=== PATIENT | female | born 1985 | race Caucasian/White ===

== ENCOUNTER → 2020-01-23 07:51 | Outpatient (CLI) | payer BC, SELFPAY ==
--- NOTE | ~2020-01-23 | US_ITS ---
EXAMINATION: US breast RT limited HISTORY: Palpable lump in the upper outer quadrant of the right breast TECHNIQUE: Limited right breast ultrasound is performed. FINDINGS: There is no evidence of focal abnormal cystic or solid mass in the vicinity of the reported palpable abnormality of concern. IMPRESSION: No specific sonographic correlate is identified for the reported palpable abnormality of concern. Fur ther evaluation at this time should be based on clinical assessment. Continued follow-up physical exa mination is recommended. BI-RADS Category 1: Negative Reviewed, dictated and finalized at location A. IMPRESSION: No specific sonographic correlate is identified for the reported palpable abnor mality of concern. Further evaluation at this time should be based on clinical assessment. Continued follow-up physical examination is recommended. BI-RADS Category 1: Negative
== END ==
PROVIDERS: PCP Emergency Medicine; Visit Provider Advanced Practice Midwife
DX: N63.10 Unspecified lump in the right breast, unspecified quadrant (principal)
CPT/HCPCS: 76642

== ENCOUNTER 2021-06-23 16:31 | Outpatient (CLI) | payer OTHER, SELFPAY ==
[2021-06-23 17:01] VITALS: BP 122/70; PULSE 90
[2021-06-23 17:16] VITALS: BP 122/71; PULSE 88
[2021-06-23 17:31] VITALS: BP 118/68; PULSE 87
[2021-06-23 17:45] VITALS: BP 122/70; PULSE 90
== END 2021-06-23 17:45 | disposition home or self-care (01) ==
LOC: ANHOBOP 16:36 → ANHOBPP 16:36
PROVIDERS: PCP Family Medicine; Visit Provider Obstetrics & Gynecology
DX: O42.912 Preterm premature rupture of membranes, unspecified as to length of time between rupture and onset of labor, second trimester (principal); Z3A.00 Weeks of gestation of pregnancy not specified
CPT/HCPCS: 59025; 84112; 99199

== ENCOUNTER 2021-07-23 10:51 | Emergency (ER) | payer OTHER, SELFPAY ==
[2021-07-23 11:08] VITALS: BP 112/73; PULSE 82; RESP 16; TEMP 36.7; O2SAT 100
--- NOTE | 2021-07-23 11:20 | ED.SKABFB ---
HPI - Skin/Abscess/Foreign Bdy General Chief complaint: Skin/Abscess/Foreign Body Stated complaint: Rt Leg Irritation Time Seen by Provider: 07/23/21 11:21 Source: patient Mode of arrival: ambulatory Limitations: no limitations History of Present Illness HPI narrative: 35 yo F presents with c/o redness, warmth, burning sensation to anterior aspect R lower leg. Started 4 to 5 days ago as a small dot and now spreading. Pt denies pain and swelling. No injury. Is 33 wks . 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 No smoking hx. Does get up and walk around. NO SOB. No hx of DVT. All systems reviewed and negative except as noted above. Related Data Home Medications Medication Instructions Recorded Confirmed norethindrone acetate 1 mg-ethinyl 1 tablet PO DAILY 05/11/20 02/10/21 estradiol 20 mcg tablet valacyclovir 1 gram tablet 1,000 mg PO .COMPLEX 05/11/20 02/10/21 cyclobenzaprine 10 mg tablet 10 mg PO TID PRN 09/23/20 02/10/21 ubrogepant 100 mg tablet 100 mg PO ONCE PRN 09/23/20 02/10/21 Allergies Allergy/AdvReac Type Severity Reaction Status Date / Time NICKELSULFATE AdvReac Intermediate TOPICAL Uncoded 07/23/21 11:09 REACTION TO WORN METAL Review of Systems Review of Systems: CONSTITUTIONAL: Denies fever, chills, or sweats. EYES: Denies visual changes, redness, or discharge. ENT: Denies rhinorrhea, congestion, sore throat, or otalgia. CARDIOVASCULAR: Denies chest pain, palpitations, or edema. RESPIRATORY: Denies cough or dyspnea. GASTROINTESTINAL: Denies abdominal pain, nausea, vomiting, or diarrhea. GENITOURINARY: Denies dysuria or hematuria. SKIN: Reports redness warmth and burning sensation to right lower leg MUSCULOSKELETAL: Denies back pain, joint pain, or myalgia. NEUROLOGIC: Denies headache, numbness, or weakness. PSYCHIATRIC: Denies anxiety or depression. All other systems reviewed are negative, except as documented in HPI. [facility] Past Medical History Medical History (Updated 07/23/21 @ 11:29 by Siri Rose NP) Acute sinusitis, unspecified Chronic anxiety Chronic neck pain Contraception management Encounter for wellness examination in adult Fever blister Hx of migraine headaches Migraine without aura and without status migrainosus, not intractable Palpitation Raynaud's disease without gangrene Surgical History Surgical History (Updated 05/11/20 @ 14:40 by Grace Junior MA) History of breast surgery (~2007) benign tumor removed Hx of LASIK (~2007) Family History Family History (Updated 05/11/20 @ 14:42 by Grace Junior MA) Mother Lupus Heart disease Father Heart disease Melanoma Grandparent Glaucoma Grandparent Heart disease Grandparent Macular degeneration Grandparent Mesothelioma Depression Sibling Depression Social History Social History Smoking status: Never smoker Alcohol intake: current Drinks per week: 2 Substance use: current Other substance usage details: Marijuana edibles on occasion Comments At time of signature, agree with nursing past medical, surgical, social and family history. There is no relevant family history pertinent to the presenting complaint. Exam Narrative: GENERAL: This is a well-nourished, well-developed patient, in no apparent distress. HEAD: normocephalic, atraumatic. EYES: PERRL. Sclera clear/white. Vision is grossly intact. EARS: External ears normal, auditory canals clear and without drainage, TMs normal without perforation. Hearing grossly intact. NOSE: External nose normal with no obvious nasal discharge, nares without redness, no rhinorrhea. THROAT: Mucous membranes moist, posterior pharynx clear. NECK: Neck supple, non-tender without lymphadenopathy, masses or thyromegaly. CARDIOVASCULAR: Regular rate and rhythm without murmurs, gall
[2021-07-23 12:05] VITALS: BP 112/73; PULSE 82; RESP 16; TEMP 36.7; O2SAT 100
== END 2021-07-23 11:32 | disposition home or self-care (01) ==
PROVIDERS: Emergency Provider Nurse Practitioner Family; PCP Family Medicine
DX: O99.713 Diseases of the skin and subcutaneous tissue complicating pregnancy, third trimester (principal); Z3A.33 33 weeks gestation of pregnancy; L03.115 Cellulitis of right lower limb; O99.413 Diseases of the circulatory system complicating pregnancy, third trimester; I73.00 Raynaud's syndrome without gangrene
CPT/HCPCS: 99213; G0463

== ENCOUNTER 2021-07-25 11:40 | Emergency (ER) | payer OTHER, SELFPAY ==
[2021-07-25] VITALS (10 sets, daily range): BP systolic 120–146; BP diastolic 71–91; PULSE 84–102; RESP 16–20; TEMP 36.6; O2SAT 96–100
--- NOTE | ~2021-07-25 | US_ITS ---
EXAMINATION: US venous doppler LE EXAM DATE: 07/25/2021 14:21 INDICATION: Right ankle erythema. Purple color to toes. TECHNIQUE: Multiple grayscale, color flow and Doppler images of the lower extremity deep venous syste ms bilaterally were obtained and reviewed. There is no prior study for comparison. FINDINGS: Right side: The right common femoral, femoral and profunda veins demonstrate normal color flow, respi ratory variation, augmentation and compressibility. Compressibility, color flow confirmed within the right popliteal, posterior tibial, peroneal, and greater saphenous veins. Left side: The left common femoral, femoral and profunda veins demonstrate normal color flow, respira tory variation, augmentation and compressibility. Compressibility, color flow confirmed within the l eft popliteal, posterior tibial, peroneal, and greater saphenous veins. IMPRESSION: 1. No lower extremity deep venous thrombosis bilaterally. Reviewed, dictated and finalized at location B. NET WORKER
--- NOTE | 2021-07-25 13:25 | ED.LOWEXIN ---
HPI - Extremity Injury (Lower) General Chief Complaint: Extremity Injury, Lower Stated Complaint: discoloration to right leg Time Seen by Provider: 07/25/21 13:00 History of Present Illness HPI Narrative: 35-year-old female presents to the emergency room with discoloration to her right leg x1 week. Patient denies any pain. Patient states that she was seen at an urgent care for this same complaint days ago and was started on course of Keflex and topical steroid. Patient states no improvement in symptoms. Patient is 31 weeks . 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 Patient admits to sitting on her right leg. Also admits to being tested for autoimmune disorders has a positive LEIDY, with an unidentified autoimmune disord Family history of lupus. Related Data Home Medications Medication Instructions Recorded Confirmed PNV no.[id number] acid 1 tablet PO DAILY 07/23/21 07/23/21 [Complete ] aspirin [Adult Low Dose Aspirin] 81 mg PO DAILY 07/23/21 07/23/21 Allergies Allergy/AdvReac Type Severity Reaction Status Date / Time NICKELSULFATE AdvReac Intermediate TOPICAL Uncoded 07/23/21 11:09 REACTION TO WORN METAL Review of Systems Review of Systems: CONSTITUTIONAL: Denies fever, chills, or sweats. EYES: Denies visual changes, redness, or discharge. ENT: Denies rhinorrhea, congestion, sore throat, or otalgia. CARDIOVASCULAR: Denies chest pain, palpitations, or edema. RESPIRATORY: Denies cough or dyspnea. GASTROINTESTINAL: Denies abdominal pain, nausea, vomiting, or diarrhea. GENITOURINARY: Denies dysuria or hematuria. SKIN: Discoloration to the right ankle. MUSCULOSKELETAL: Denies back pain, joint pain, or myalgia. NEUROLOGIC: Denies headache, numbness, dizziness, or weakness. PSYCHIATRIC: Denies anxiety or depression. [facility] Past Medical History Medical History Acute sinusitis, unspecified Chronic anxiety Chronic neck pain Contraception management Encounter for wellness examination in adult Fever blister Hx of migraine headaches Migraine without aura and without status migrainosus, not intractable Palpitation Raynaud's disease without gangrene Surgical History Surgical History History of breast surgery (~2007) benign tumor removed Hx of LASIK (~2007) Family History Family History Mother Lupus Heart disease Father Heart disease Melanoma Grandparent Glaucoma Grandparent Heart disease Grandparent Macular degeneration Grandparent Mesothelioma Depression Sibling Depression Social History Social History Smoking status: Never smoker Alcohol intake: current Drinks per week: 2 Substance use: current Other substance usage details: Marijuana edibles on occasion Exam Narrative: GENERAL: Well-appearing, well-nourished, and in no acute distress. HEAD: Normocephalic, atraumatic. EYES: PERRLA and EOMI. ENT: Nares clear, no rhinorrhea or epistaxis. Mucous membranes moist. Oropharynx without tonsillar hypertrophy exudate or other lesions. Bilateral TMs pearly thornton nonbulging NECK: Supple. No adenopathy or masses. No carotid bruits or JVD CHEST: Clear to auscultation. No respiratory distress. No wheezes rales or rhonchi HEART: Regular rate and rhythm. No murmur heard. Normal peripheral pulses. ABDOMEN: Soft, nontender, nondistended, normal active bowel sounds. EXTREMITIES: Normal range of motion. No edema. Negative Homans SKIN: Warm, dry, no rash. Slight hyperpigmentation to the right ankle and distal tibia. NEURO: No focal deficits. Alert and oriented x3. PSYCH: Normal mood and affect. Course Vital Signs Vital signs: Vital Signs Temp
[2021-07-25 14:06] LABS: Add Urine Microscopic? YES; Appearance Urine Clear (Clear); Bacteria Urine Trace /hpf; Bilirubin Urine Negative (Negative); Blood Urine Negative (Negative); Color Urine Yellow (Yellow); Glucose Urine UA Negative (Negative); Ketones Urine Negative (Negative); Leukocyte Esterase Ur 3+ LEU/UL (Negative); Mucus Urine Rare /lpf; Nitrate Urine Negative (Negative); Protein Urine Negative (Negative); Specific Grav Ur 1.018 (1.001-1.035); Squamous Epithelial Cell Urine Many /hpf (Few); Urobilinogen Urine Negative mg/dL (<2.0); WBC Urine 21-30 /hpf
[2021-07-25 14:26] LABS: Basophils Absolute Auto 0.1 K/mm3 (0.0-0.1); Basophils Percent Auto 0.5 % (0.2-1.2); Eosinophils Absolute Auto 0.1 K/mm3 (0-0.3); Eosinophils Percent Auto 1.3 % (0-4.4); Hematocrit 33.6 % (37.0-47.0); Hemoglobin 11.5 g/dL (12.0-15.0); Immature Granulocyte Absolute 0.06 K/mm3 (0.00-0.031); Immature Granulocyte Percent A 0.7 % (0-0.5); Lymphocytes Absolute Auto 1.33 K/mm3 (0.9-3.2); Lymphocytes Percent Auto 14.4 % (18.3-44.2); Mean Corpuscular HGB Conc 34.2 g/dl (32-36); Mean Corpuscular Hemoglobin 30.8 pg (26-34); Mean Corpuscular Volume 90.1 fl (80-100); Mean Platelet Volume 9.9 fl (7.4-10.4); Monocytes Absolute Auto 0.6 K/mm3 (0.1-0.6); Monocytes Percent Auto 6.2 % (2.6-8.5); Neutrophils Absolute Auto 7.1 K/mm3 (1.3-6.7); Neutrophils Percent Auto 76.9 % (45.5-73.1); Platelet Count Result 219 k/mm3 (150-375); Red Blood Count 3.73 M/mm3 (4.2-5.4); Red Cell Distribution Width 12.9 % (11.5-14.5); White Blood Count 9.2 K/mm3 (4.5-10.0)
[2021-07-25 14:38] LABS: Alanine Aminotransferase 16 U/L (4-35); Albumin Level 3.8 g/dL (3.5-5.1); Alkaline Phosphatase 72 U/L (38-126); Anion Gap 6 mmol/L (8-16); Aspartate Amino Transferase 23 U/L (14-36); Bilirubin,Total 0.3 mg/dL (0.2-1.3); Blood Urea Nitrogen 10 mg/dL (7-17); Calcium 8.2 mg/dL (8.4-10.2); Carbon Dioxide 22 mmol/L (22-30); Chloride 105 mmol/L (98-107); Estimated CRCL calculation 153 ml/min; Estimated Glomerular Filt Rate > 60; Glucose 81 mg/dL (65-110); Potassium 4.1 mmol/L (3.4-5.0); Sodium 133 mmol/L (137-145)
--- NOTE | 2021-07-25 14:45 | PC.NURSE ---
pt refused iv insertion at this time. pt educate on risks and benefits and verbalized understanding.
[2021-07-25 14:50] LABS: Prothrombin Time 12.5 Seconds (11.1-14.7)
[2021-07-25 14:51] LABS: Partial Thromboplastin Time 28.2 SECONDS (22.3-36.8)
== END 2021-07-25 15:31 | disposition home or self-care (01) ==
PROVIDERS: Emergency Provider Nurse Practitioner Family; PCP Family Medicine
DX: O99.713 Diseases of the skin and subcutaneous tissue complicating pregnancy, third trimester (principal); L81.9 Disorder of pigmentation, unspecified; O13.3 Gestational [pregnancy-induced] hypertension without significant proteinuria, third trimester; Z3A.31 31 weeks gestation of pregnancy; O99.413 Diseases of the circulatory system complicating pregnancy, third trimester; I73.00 Raynaud's syndrome without gangrene; R76.0 Raised antibody titer; Z79.82 Long term (current) use of aspirin
CPT/HCPCS: 36415; 80053; 81001; 85025; 85380; 85610; 85730; 87086; 87088; 93970; 99284

== ENCOUNTER 2021-09-02 10:00 | Outpatient (CLI) | payer OTHER, SELFPAY ==
[2021-09-02 10:10] VITALS: BP 135/80; PULSE 98
[2021-09-02 10:15] VITALS: BP 105/89; PULSE 94
[2021-09-02 10:20] VITALS: BP 135/80; PULSE 98
[2021-09-02 10:45] VITALS: BP 126/83; PULSE 86
[2021-09-02 10:45] LABS: Basophils Percent Auto 0.4 % (0.2-1.2); Eosinophils Absolute Auto 0.1 K/mm3 (0-0.3); Eosinophils Percent Auto 1.1 % (0-4.4); Hematocrit 35.8 % (37.0-47.0); Immature Granulocyte Absolute 0.07 K/mm3 (0.00-0.031); Immature Granulocyte Percent A 0.7 % (0-0.5); Lymphocytes Absolute Auto 1.41 K/mm3 (0.9-3.2); Lymphocytes Percent Auto 13.2 % (18.3-44.2); Mean Corpuscular HGB Conc 33.5 g/dl (32-36); Mean Corpuscular Hemoglobin 30.3 pg (26-34); Mean Corpuscular Volume 90.4 fl (80-100); Mean Platelet Volume 10.2 fl (7.4-10.4); Monocytes Absolute Auto 0.6 K/mm3 (0.1-0.6); Neutrophils Absolute Auto 8.4 K/mm3 (1.3-6.7); Neutrophils Percent Auto 78.6 % (45.5-73.1); Platelet Count Result 249 k/mm3 (150-375); Red Blood Count 3.96 M/mm3 (4.2-5.4); Red Cell Distribution Width 13.4 % (11.5-14.5); White Blood Count 10.7 K/mm3 (4.5-10.0)
[2021-09-02 10:50] LABS: Add Urine Microscopic? YES; Appearance Urine Clear (Clear); Bacteria Urine Trace /hpf; Bilirubin Urine Negative (Negative); Blood Urine Negative (Negative); Color Urine Yellow (Yellow); Glucose Urine UA Negative (Negative); Ketones Urine Negative (Negative); Leukocyte Esterase Ur 3+ LEU/UL (NEGATIVE); Nitrate Urine Negative (Negative); Protein Urine Negative (Negative); RBC Urine 0-2 /hpf (0-2); Specific Grav Ur 1.008 (1.001-1.035); Squamous Epithelial Cell Urine Few /hpf (Few); Urobilinogen Urine Negative mg/dL (<2.0); WBC Urine 0-3 /hpf (0-3)
[2021-09-02 10:52] LABS: Creatinine Urine 38.4 mg/dL; Total Protein Urine Random 9 mg/dL; Ur Ttl Prot Creatinine Ratio 0.23 mg/mg (0-0.20)
[2021-09-02 11:00] VITALS: BP 115/73; PULSE 87
[2021-09-02 11:05] LABS: Alanine Aminotransferase 29 U/L (4-35); Albumin Level 3.7 g/dL (3.5-5.1); Alkaline Phosphatase 133 U/L (38-126); Anion Gap 4 mmol/L (8-16); Aspartate Amino Transferase 29 U/L (14-36); Bilirubin,Total 0.3 mg/dL (0.2-1.3); Blood Urea Nitrogen 8 mg/dL (7-17); Calcium 8.5 mg/dL (8.4-10.2); Carbon Dioxide 22 mmol/L (22-30); Chloride 105 mmol/L (98-107); Estimated Glomerular Filt Rate > 60; Glucose 80 mg/dL (65-110); Potassium 4.2 mmol/L (3.4-5.0); Sodium 131 mmol/L (137-145); Uric Acid 4.9 mg/dL (2.5-7.5)
[2021-09-02 11:08] VITALS: TEMP 36.2
== END 2021-09-02 11:15 ==
LOC: ANHOBOP 10:04 → ANHOBPP 10:07
PROVIDERS: Advanced Practice Midwife; PCP Family Medicine; Visit Provider Obstetrics & Gynecology
DX: O13.3 Gestational [pregnancy-induced] hypertension without significant proteinuria, third trimester (principal); Z3A.36 36 weeks gestation of pregnancy
CPT/HCPCS: 36415; 59025; 80053; 81001; 82570; 84156; 84550; 85025; 87086; 99199

== ENCOUNTER 2021-09-06 00:02 | Inpatient (IN) | payer OTHER, SELFPAY ==
[2021-09-06] VITALS (191 sets, daily range): BP systolic 101–133; BP diastolic 53–93; PULSE 67–120; RESP 16; TEMP 36.4–36.8; O2SAT 91–100; BMI 25.1
--- OUTSIDE RECORDS SUMMARY | 2021-09-06 00:07 | XMS_ITS | Encounter Summary ---
:1985 Author Care Team Providers Name Role Phone Merlin Ricks MD Primary Care Provider [phone] Reason for Visit OB visit [id number] ISAURO 09/25/2021 Assessment and Plan Assessment Note Patient is _36__weeks . Dis cussed plan. 1. Routine care Discussion Note: None recorded.Patient educational handouts: No information available. Plan of Care Reminders Provider Appointments Well on or around Sonja Suman Sun-florencio 01/13/2022 CNM Lab None ? ? recorded. Referral None ? ? recorded. Procedures None ? ? recorded. Surgeries None ? ? recorded. Imaging None ? ? recorded. Medications Name Start Date ? ? Colace ? Daily ? ondansetron 4 mg disintegrating tablet ? Place 1 tablet every 6-8 hours by translingual route. valacyclovir 500 mg tablet ? TAKE 1 TABLET BY MOUTH DAILY Medications Administered None recorded. Vitals Height Weight BMI Blood Pressure 5 ft 11 in 201 lbs 28 kg/m2 (1) 155/95 mm[H g] (2) 140/90 mm[Hg ] Results Lab Results None recorded. Allergies Code Code System Name Reaction Severity Onset
--- OUTSIDE RECORDS SUMMARY | 2021-09-06 00:07 | XMS_ITS | Encounter Summary ---
:1985 Author Care Team Providers Name Role Phone Merlin Ricks MD Primary Care Provider [phone] Reason for Visit OB visit OB [id number] EDC 09/25/2021 LMP 12/19/2020 Assessment and Plan 1. Routine care Discussion Note: None recorded.Patient educational handouts: No information available. Plan of Care Reminders Provider Appointments Well on or around Sonja montoya, Woman-est 01/13/2022 CNM Lab None ? ? recorded. [...] BMI Blood Pressure 5 ft 11 in 198 lbs 27.6 kg/m2 129/82 mm[Hg] Results Lab Results None recorded. Allergies Code Code System Name Reaction Severity Onset [id number] RxNorm Nickel ? ? ? Problems Name Status Onset Date Source ?
--- OUTSIDE RECORDS SUMMARY | 2021-09-06 00:07 | XMS_ITS | Encounter Summary ---
:1985 Author Care Team Providers Name Role Phone Merlin Ricks MD Primary Care Provider [phone] Reason for Visit None recorded. Assessment and Plan 1. Transient hypertension of pre gnancy ? non-stress test Discussion Note: None recorded.Patient educational handouts: No information available. Plan of Care Reminders Provider Appointments Well on or around Sonja montoya CNM Woman[facility]est 01/13/2022 Lab None ? ? recorded. Referral None ? ? recorded. Procedures None ? ? recorded. Surgeries None ? ? recorded. Imaging 08/25/2021 [place] Non-stress Test Medications Name Start Date ? ? Colace ? Daily ? ondansetron 4 mg disintegrating tablet ? Place 1 tablet every 6-8 hours by translingual route. valacyclovir 500 mg tablet ? TAKE 1 TABLET BY MOUTH DAILY Medications Administered None recorded. Vitals Weight Blood Pressure 200 lbs 136/90 mm[Hg] Results Lab Results None recorded. Allergies Code Code System Name Reaction Severity Onset [id number] RxNorm Nickel ? ? ? Problems Name Status O
--- OUTSIDE RECORDS SUMMARY | 2021-09-06 00:07 | XMS_ITS | Encounter Summary ---
:1985 Author Care Team Providers Name Role Phone Merlin Ricks MD Primary Care Provider [phone] Reason for Visit None recorded. Assessment and Plan 1. Transient hypertension of pre gnancy ? non-stress test Discussion Note: None recorded.Patient educational handouts: No information available. Plan of Care Reminders Provider Appointments Well on or around Sonja montoya CNM Woman-est 01/13/2022 Lab None ? ? recorded. Referral None ? ? recorded. Procedures None ? ? recorded. Surgeries None ? ? recorded. Imaging 08/30/2021 [place] Non-stress Test Medications Name Start Date ? ? Colace ? Daily ? ondansetron 4 mg disintegrating tablet ? Place 1 tablet every 6-8 hours by translingual route. valacyclovir 500 mg tablet ? TAKE 1 TABLET BY MOUTH DAILY Medications Administered None recorded. Vitals None recorded. Results Lab Results None recorded. Allergies Code Code System Name Reaction Severity Onset [id number] RxNorm Nickel ? ? ? Problems Name Status Onset Date Source ?
--- OUTSIDE RECORDS SUMMARY | 2021-09-06 00:07 | XMS_ITS ---
:1985 Author Care Team Providers Name Role Phone TANIA MACIEL MD Primary Care Provider [phone] Allergies Code Code System Name Reaction Severity Status Onset [id number] RxNorm Nickel ? ? Active ? Medications Name Status Start Date Stop Date ? ? acetaminophen 300 mg-codeine 30 mg tablet Completed ? 06/09/2021 TAKE 1 TABLET BY MOUTH EVERY 8 HOURS NEEDED FOR PAIN amoxicillin 250 mg capsule Completed ? 06/13 take 1 capsule by oral route every 8 hours amoxicillin 875 mg tablet Completed ? 2021 TAKE 1 TABLET BY MOUTH TWICE DAILY Aurovela Fe 1-20 (28) 1 mg-20 mcg (21)/75 mg (7) tablet Complete d ? 01/03/2021 TAKE 1 TABLET BY MOUTH EVERY DAY azithromycin 250 mg tablet Completed ? 01/03 FOLLOW PACKAGE DIRECTIONS cefdinir 300 mg capsule Completed ? 05/19/20 21 TAKE 1 CAPSULE BY MOUTH EVERY 12 HOURS cephalexin 500 mg capsule Completed ? 2021 TAKE 1 CAPSULE BY MOUTH EVERY 8 HOURS FOR 7 DAYS Colace Active ? Not available Colace 50 mg capsule Completed 06/13/2016 08/31/2017 take 1 capsule by oral route every day at bedtime as needed cyclobenzaprine 10 mg tablet Completed ? 01/2021 TAKE 1/2 TO 1 TABLET BY MOUTH EVERY NIGHT AT BEDTIME Daily Active ? Not available doxycycline monohydrate 100 mg tablet Completed ? 01/03/2021 TAKE 1 TABLET BY MOUTH TWICE DAILY DIRECTED Erygel 2 % topical Completed 10/12/2015 06/13/2016 apply by topical route 2 times every da y a thin layer to the affected area(s) in the m
--- OUTSIDE RECORDS SUMMARY | 2021-09-06 00:07 | XMS_ITS | Encounter Summary ---
:1985 Author Care Team Providers Name Role Phone Merlin Ricks MD Primary Care Provider [phone] Reason for Visit Reactive BP was high 151/90 then 141/101 sent to ER for labs and extended montoring CAREN Prakash Assessment and Plan 1. Transient hypertension of pre gnancy ? non-stress test Discussion Note: None recorded.Patient educational handouts: No information available. Plan of Care Reminders Provider Appointments Well on or around Sonja montoya CNM Woman[facility] 01/13/2022 Lab None ? ? recorded. Referral None ? ? recorded. Procedures None ? ? recorded. Surgeries None ? ? recorded. Imaging 09/02/2021 [place] Non-stress Test Medications Name Start Date ? ? Colace ? Daily ? ondansetron 4 mg disintegrating tablet ? Place 1 tablet every 6-8 hours by translingual route. valacyclovir 500 mg tablet ? TAKE 1 TABLET BY MOUTH DAILY Medications Administered None recorded. Vitals Weight Blood Pressure 201 lbs (1) 151/90 mm[Hg] (2) 141/101 mm[Hg] Results Lab Results None recorded. Allergies Code Code System Name Reaction Severity Onset
--- OUTSIDE RECORDS SUMMARY | 2021-09-06 00:07 | XMS_ITS | Encounter Summary ---
:1985 Author Care Team Providers Name Role Phone Merlin Ricks MD Primary Care Provider [phone] Reason for Visit None recorded. Assessment and Plan 1. COVID-19 ? US, obstetric, follow-up Discussion Note: None recorded.Patient educational handouts: No information available. Plan of Care Reminders Provider Appointments Well on or around Sonja montoya CNM Woman[facility] 01/13/2022 Lab None ? ? recorded. Referral None ? ? recorded. Procedures None ? ? recorded. Surgeries None ? ? recorded. Imaging US, 08/22/2021 [place] [facility], Follow-up Medications Name Start Date ? ? Colace ? Daily ? ondansetron 4 mg disintegrating tablet ? Place 1 tablet every 6-8 hours by translingual route. valacyclovir 500 mg tablet ? TAKE 1 TABLET BY MOUTH DAILY Medications Administered None recorded. Vitals None recorded. Results Lab Results None recorded. Allergies Code Code System Name Reaction Severity Onset [id number] RxNorm Nickel ? ? ? Problems Name Status Onset Date Source ? Active 10
--- OUTSIDE RECORDS SUMMARY | 2021-09-06 00:07 | XMS_ITS | Continuity of Care Document ---
:1985 Author Organization [facility] Address [address] [place] [id number] Care Team Providers Name Role Phone Merlin Minor Primary Care Physician Encounter [facility] Financial Number [id number] Date(s): 07/26/21 - 07/26/[address] [id number] Discharge Disposition: Home or Self Care Attending Physician: Justin Novoa M.D. Referring Physician: Justin Novoa M.D. Problem List Diagnosis Diagnosis Type Effective [facility] Clinical Infor mant Status Service Systemic 07/26/21 Non-Specified involvement of connective tissue, unspecified Raynaud's syndrome 07/26/21 Non-Specified without gangrene Systemic 07/26/21 Non-Specified involvement of connective tissue, unspecified Raynaud's syndrome 07/26/21 Non-Specified without gangrene Primary 07/26/21 Non-Specified osteoarthritis, unspecified hand Migraine without 07/26/21 Non-Specified aura, not intractable, without status migrainosus Systemic 07/26/21 Non-Specified involvement of connective tissue, unspecified Raynaud's syndrome 07/26/21 Non-Specified
--- OUTSIDE RECORDS SUMMARY | 2021-09-06 00:08 | XMS_ITS | Encounter Summary ---
:1985 Author Care Team Providers Name Role Phone Merlin Ricks MD Primary Care Provider [phone] Reason for Visit None recorded. Assessment and Plan 1. Oligohydramnios ? non-stress test Discussion Note: None recorded.Patient educational handouts: No information available. Plan of Care Reminders Provider Appointments Well on or around Sonja montoya CNM Woman[facility] 01/13/2022 Lab None ? ? recorded. Referral None ? ? recorded. Procedures None ? ? recorded. Surgeries None ? ? recorded. Imaging 08/16/2021 [place] Non-stress Test Medications Name Start Date ? ? Colace ? Daily ? ondansetron 4 mg disintegrating tablet ? Place 1 tablet every 6-8 hours by translingual route. valacyclovir 500 mg tablet ? TAKE 1 TABLET BY MOUTH DAILY Medications Administered None recorded. Vitals Weight Blood Pressure 200 lbs 133/83 mm[Hg] Results Lab Results None recorded. Allergies Code Code System Name Reaction Severity Onset [id number] RxNorm Nickel ? ? ? Problems Name Status Onset Date Source
--- OUTSIDE RECORDS SUMMARY | 2021-09-06 00:08 | XMS_ITS | Encounter Summary ---
:1985 Author Care Team Providers Name Role Phone Merlin Ricks MD Primary Care Provider [phone] Reason for Visit None recorded. Assessment and Plan 1. Oligohydramnios ? US, obstetric, limited Discussion Note: None recorded.Patient educational handouts: No information available. Plan of Care Reminders Provider Appointments Well on or around Sonja Isi lindsay, Woman-est 01/13/2022 CNM Lab None ? ? recorded. Referral None ? ? recorded. Procedures None ? ? recorded. Surgeries None ? ? recorded. Imaging US, 08/19/2021 [place] [facility], Limited Medications Name Start Date ? ? Colace ? Daily ? ondansetron 4 mg disintegrating tablet ? Place 1 tablet every 6-8 hours by translingual route. valacyclovir 500 mg tablet ? TAKE 1 TABLET BY MOUTH DAILY Medications Administered None recorded. Vitals None recorded. Results Lab Results None recorded. Allergies Code Code System Name Reaction Severity Onset [id number] RxNorm Nickel ? ? ? Problems Name Status Onset Date Source ? Active
--- OUTSIDE RECORDS SUMMARY | 2021-09-06 00:08 | XMS_ITS | Encounter Summary ---
:1985 Author Care Team Providers Name Role Phone Merlin Ricks MD Primary Care Provider [phone] Reason for Visit None recorded. Assessment and Plan 1. condition affecting obs tetrical care of mother ? US, obstetric, biophysical profile Discussion Note: None recorded.Patient educational handouts: No information available. Plan of Care Reminders Provider Appointments Well on or around Sonja Isi lindsay, Woman-est 01/13/2022 CNM Lab None ? ? recorded. Referral None ? ? recorded. Procedures None ? ? recorded. Surgeries None ? ? recorded. Imaging US, 08/12/2021 [place] [facility], Biophysical Profile Medications Name Start Date ? ? Colace ? Daily ? ondansetron 4 mg disintegrating tablet ? Place 1 tablet every 6-8 hours by translingual route. valacyclovir 500 mg tablet ? TAKE 1 TABLET BY MOUTH DAILY Medications Administered None recorded. Vitals None recorded. Results Lab Results None recorded. Allergies Code Code System Name Reaction Severity Onset [id number] RxNorm Nickel ? ? ? Problems Name Status Onset Date Source ?
--- OUTSIDE RECORDS SUMMARY | 2021-09-06 00:08 | XMS_ITS | Encounter Summary ---
:1985 Author Care Team Providers Name Role Phone Merlin Ricks MD Primary Care Provider [phone] Reason for Visit OB visit ob [id number] edc 09/25/2021 lmp 12/19/2020 Assessment and Plan Assessment Note Patient is _33__weeks . Dis cussed plan. 1. Routine care 2. Nausea ? ondansetron 4 mg disintegr ating tablet Discussion Note: None recorded.Patient educational handouts: No [...] BMI Blood Pressure 5 ft 11 in 199 lbs 27.8 kg/m2 131/93 mm[Hg] Results Lab Results None recorded. Allergies Code
--- OUTSIDE RECORDS SUMMARY | 2021-09-06 00:08 | XMS_ITS | Encounter Summary ---
:1985 Author Care Team Providers Name Role Phone Merlin Ricks MD Primary Care Provider [phone] Reason for Visit NST [id number] EDC 09/25/2021 LMP 12/19/2020 Assessment and Plan 1. Oligohydramnios ? non-stress test Discussion Note: None recorded.Patient educational handouts: No information available. Plan of Care Reminders Provider Appointments Well on or around Sonja montoya CN[facility] 01/13/2022 Lab None ? ? recorded. Referral None ? ? recorded. Procedures None ? ? recorded. Surgeries None ? ? recorded. Imaging 08/02/2021 [place] Non-stress Test Medications Name Start Date ? ? Colace ? Daily ? ondansetron 4 mg disintegrating tablet ? Place 1 tablet every 6-8 hours by translingual route. valacyclovir 500 mg tablet ? TAKE 1 TABLET BY MOUTH DAILY Medications Administered None recorded. Vitals Height Weight BMI Blood Pressure 5 ft 11 in 198 lbs 27.6 kg/m2 144/89 mm[Hg] Results Lab Results None recorded. Allergies Code Code System Name Reaction Severity Onset [id number] RxNorm Nickel ? ? ? Problems Nam
--- OUTSIDE RECORDS SUMMARY | 2021-09-06 00:08 | XMS_ITS | Encounter Summary ---
:1985 Author Care Team Providers Name Role Phone Merlin Ricks MD Primary Care Provider [phone] Reason for Visit None recorded. Assessment and Plan 1. Transient hypertension of pre gnancy ? non-stress test Discussion Note: None recorded.Patient educational handouts: No information available. Plan of Care Reminders Provider Appointments Well on or around Sonja montoya CN[facility] 01/13/2022 Lab None ? ? recorded. Referral None ? ? recorded. Procedures None ? ? recorded. Surgeries None ? ? recorded. Imaging 08/22/2021 [place] Non-stress Test Medications Name Start Date ? ? Colace ? Daily ? ondansetron 4 mg disintegrating tablet ? Place 1 tablet every 6-8 hours by translingual route. valacyclovir 500 mg tablet ? TAKE 1 TABLET BY MOUTH DAILY Medications Administered None recorded. Vitals None recorded. Results Lab Results None recorded. Allergies Code Code System Name Reaction Severity Onset [id number] RxNorm Nickel ? ? ? Problems Name Status Onset Date Source ?
--- OUTSIDE RECORDS SUMMARY | 2021-09-06 00:08 | XMS_ITS | Encounter Summary ---
:1985 Author Care Team Providers Name Role Phone Merlin Ricks MD Primary Care Provider [phone] Reason for Visit OB visit 32w2d Assessment and Plan None recorded.Discussion Note: None recorded.Patient educational handouts: No information [...] Code Code System Name Reaction Severity Onset [id number] RxNorm Nickel ? ? ? Problems Name Status Onset Date Source ? Active 03/24/2021 ?
--- OUTSIDE RECORDS SUMMARY | 2021-09-06 00:08 | XMS_ITS | Encounter Summary ---
:1985 Author Care Team Providers Name Role Phone Merlin Ricks MD Primary Care Provider [phone] Reason for Visit None recorded. Assessment and Plan 1. Oligohydramnios ? non-stress test Discussion Note: None recorded.Patient educational handouts: No information available. Plan of Care Reminders Provider Appointments Well on or around Sonja montoya [facility] 01/13/2022 Lab None ? ? recorded. Referral None ? ? recorded. Procedures None ? ? recorded. Surgeries None ? ? recorded. Imaging 08/12/2021 [place] Non-stress Test Medications Name Start Date ? ? Colace ? Daily ? ondansetron 4 mg disintegrating tablet ? Place 1 tablet every 6-8 hours by translingual route. valacyclovir 500 mg tablet ? TAKE 1 TABLET BY MOUTH DAILY Medications Administered None recorded. Vitals None recorded. Results Lab Results None recorded. Allergies Code Code System Name Reaction Severity Onset [id number] RxNorm Nickel ? ? ? Problems Name Status Onset Date Source ? Active 02/26
--- OUTSIDE RECORDS SUMMARY | 2021-09-06 00:08 | XMS_ITS | Encounter Summary ---
:1985 Author Care Team Providers Name Role Phone Merlin Ricks MD Primary Care Provider [phone] Reason for Visit OB visit 31w3d Assessment and Plan Assessment Note Patient is ___weeks . Discu ssed plan. Discussion Note: None recorded.Patient educational handouts: No [...] BMI Blood Pressure 5 ft 11 in 197 lbs 27.5 kg/m2 (1) 164/94 mm[H g] (2) 149/94 mm[Hg ] Results Lab Results None recorded. Allergies Code Code System Name Reaction Severity Onset [id number] RxNorm Nickel ? ?
--- OUTSIDE RECORDS SUMMARY | 2021-09-06 00:08 | XMS_ITS | Encounter Summary ---
:1985 Author Care Team Providers Name Role Phone Merlin Ricks MD Primary Care Provider [phone] Reason for Visit None recorded. Assessment and Plan 1. -induced hypertensio n ? non-stress test Discussion Note: None recorded.Patient educational handouts: No information available. Plan of Care Reminders Provider Appointments Well on or around Sonja montoya CN[facility] 01/13/2022 Lab None ? ? recorded. Referral None ? ? recorded. Procedures None ? ? recorded. Surgeries None ? ? recorded. Imaging 08/05/2021 [place] Non-stress Test Medications Name Start Date ? ? Colace ? Daily ? ondansetron 4 mg disintegrating tablet ? Place 1 tablet every 6-8 hours by translingual route. valacyclovir 500 mg tablet ? TAKE 1 TABLET BY MOUTH DAILY Medications Administered None recorded. Vitals None recorded. Results Lab Results None recorded. Allergies Code Code System Name Reaction Severity Onset [id number] RxNorm Nickel ? ? ? Problems Name Status Onset Date Source ? A
--- OUTSIDE RECORDS SUMMARY | 2021-09-06 00:08 | XMS_ITS | Encounter Summary ---
:1985 Author Care Team Providers Name Role Phone Merlin Ricks MD Primary Care Provider [phone] Reason for Visit OB visit 29w2d Assessment and Plan 1. Routine care 2. -induced hypertensio n ? CBC w/ auto diff ? CMP, serum or plasma ? uric acid, serum or plasma Discussion Note: None recorded.Patient educational handouts: No information available. Plan of Care Reminders Provider Appointments Well on or around Sonja montoya, [facility] 01/13/2022 [facility] CBC W/ 07/12/[facility] ? CMP, 07/12/2021 [facility] ? Uric 07/12/2021 [facility] Plasma Referral None ? ? recorded. Procedures None ? ? recorded. Surgeries None ? ? recorded. Imaging None ? ? recorded. Medications Name Start Date ? ? Colace ? Daily ? ondansetron 4 mg disintegrating tablet ? Place 1 tablet every 6-8 hours by translingual route.
--- OUTSIDE RECORDS SUMMARY | 2021-09-06 00:08 | XMS_ITS | Encounter Summary ---
:1985 Author Care Team Providers Name Role Phone Merlin Ricks MD Primary Care Provider [phone] Reason for Visit None recorded. Assessment and Plan 1. Oligohydramnios ? non-stress test Discussion Note: None recorded.Patient educational handouts: No information available. Plan of Care Reminders Provider Appointments Well on or around Sonja montoya [facility] 01/13/2022 Lab None ? ? recorded. Referral None ? ? recorded. Procedures None ? ? recorded. Surgeries None ? ? recorded. Imaging 08/19/2021 [place] Non-stress Test Medications Name Start Date ? ? Colace ? Daily ? ondansetron 4 mg disintegrating tablet ? Place 1 tablet every 6-8 hours by translingual route. valacyclovir 500 mg tablet ? TAKE 1 TABLET BY MOUTH DAILY Medications Administered None recorded. Vitals None recorded. Results Lab Results None recorded. Allergies Code Code System Name Reaction Severity Onset [id number] RxNorm Nickel ? ? ? Problems Name Status Onset Date Source ? Active 02/26
--- OUTSIDE RECORDS SUMMARY | 2021-09-06 00:08 | XMS_ITS | Encounter Summary ---
:1985 Author Care Team Providers Name Role Phone Merlin Ricks MD Primary Care Provider [phone] Reason for Visit OB visit 27w1d Assessment and Plan 1. Routine care Discussion [...] BMI Blood Pressure 5 ft 11 in 193 lbs 26.9 kg/m2 114/77 mm[Hg] Results Lab Results None recorded. Allergies Code Code System Name Reaction Severity Onset [id number] RxNorm Nickel ? ? ? Problems Name Status Onset Date Source ?
--- OUTSIDE RECORDS SUMMARY | 2021-09-06 00:08 | XMS_ITS | Encounter Summary ---
:1985 Author Care Team Providers Name Role Phone Merlin Ricks MD Primary Care Provider [phone] Reason for Visit None recorded. Assessment and Plan 1. Transient hypertension of pre gnancy ? non-stress test Discussion Note: None recorded.Patient educational handouts: No information available. Plan of Care Reminders Provider Appointments Well on or around Sonja montoya [facility] 01/13/2022 Lab None ? ? recorded. Referral None ? ? recorded. Procedures None ? ? recorded. Surgeries None ? ? recorded. Imaging 08/09/2021 [place] Non-stress Test Medications Name Start Date ? ? Colace ? Daily ? ondansetron 4 mg disintegrating tablet ? Place 1 tablet every 6-8 hours by translingual route. valacyclovir 500 mg tablet ? TAKE 1 TABLET BY MOUTH DAILY Medications Administered None recorded. Vitals None recorded. Results Lab Results None recorded. Allergies Code Code System Name Reaction Severity Onset [id number] RxNorm Nickel ? ? ? Problems Name Status Onset Date Source ?
--- OUTSIDE RECORDS SUMMARY | 2021-09-06 00:08 | XMS_ITS | Encounter Summary ---
:1985 Author Care Team Providers Name Role Phone Merlin Ricks MD Primary Care Provider [phone] Reason for Visit OB visit OB [id number] EDC 09/25/2021 LMP 12/19/2020 Assessment and Plan Assessment Note Patient is _34__weeks . Dis cussed plan. 1. Routine care [...] ft 11 in 201 lbs 28 kg/m2 135/90 mm[Hg] Results Lab Results None recorded. Allergies Code Code System Name Reaction Severity Onset [id number] RxNorm
--- OUTSIDE RECORDS SUMMARY | 2021-09-06 00:08 | XMS_ITS | Encounter Summary ---
:1985 Author Care Team Providers Name Role Phone Merlin Ricks MD Primary Care Provider [phone] Reason for Visit None recorded. Assessment and Plan 1. Pre-existing maternal disease complicating ? US, obstetric, follow-up Discussion Note: None recorded.Patient educational handouts: No information available. Plan of Care Reminders Provider Appointments Well on or around Sonja montoya [facility] 01/13/2022 Lab None ? ? recorded. Referral None ? ? recorded. Procedures None ? ? recorded. Surgeries None ? ? recorded. Imaging US, 07/27/2021 [place] [facility], Follow-up Medications Name Start Date ? ? Colace ? Daily ? ondansetron 4 mg disintegrating tablet ? Place 1 tablet every 6-8 hours by translingual route. valacyclovir 500 mg tablet ? TAKE 1 TABLET BY MOUTH DAILY Medications Administered None recorded. Vitals None recorded. Results Lab Results None recorded. Allergies Code Code System Name Reaction Severity Onset [id number] RxNorm Nickel ? ? ? Problems Name Status Onset Date Source ?
--- OUTSIDE RECORDS SUMMARY | 2021-09-06 00:09 | XMS_ITS | Encounter Summary ---
:1985 Author Care Team Providers Name Role Phone Merlin Ricks MD Primary Care Provider [phone] Reason for Visit None recorded. Assessment and Plan 1. Disease of nervous system com plicating , childbirth and puerperium ? US, obstetric, follow-up Discussion Note: None recorded.Patient educational handouts: No information available. Plan of Care Reminders Provider Appointments Well on or around Sonja montoya [facility] 01/13/2022 Lab None ? ? recorded. Referral None ? ? recorded. Procedures None ? ? recorded. Surgeries None ? ? recorded. Imaging US, 06/27/2021 [place] [facility], Follow-up Medications Name Start Date ? ? Colace ? Daily ? ondansetron 4 mg disintegrating tablet ? Place 1 tablet every 6-8 hours by translingual route. valacyclovir 500 mg tablet ? TAKE 1 TABLET BY MOUTH DAILY Medications Administered None recorded. Vitals None recorded. Results Lab Results None recorded. Allergies Code Code System Name Reaction Severity Onset [id number] RxNorm Nickel ? ? ? Problems Name Status Onset Date Source ?
--- OUTSIDE RECORDS SUMMARY | 2021-09-06 00:09 | XMS_ITS | Encounter Summary ---
:1985 Author Care Team Providers Name Role Phone Merlin Ricks MD Primary Care Provider [phone] Reason for Visit OB visit 24w4d Assessment and Plan 1. Routine care Discussion [...] BMI Blood Pressure 5 ft 11 in 188 lbs 26.2 kg/m2 132/84 mm[Hg] Results Lab Results None recorded. Allergies Code Code System Name Reaction Severity Onset [id number] RxNorm Nickel ? ? ? Problems Name Status Onset Date Source ?
[2021-09-06] MEDS: LACTATED RINGERS 1,000 ML 125 ML IV CONT (00:50)
[2021-09-06] MEDS: AMPICILLIN 2 GM/NS 100 ML 2 GM/100 ML BAG IVPB (00:50)
[2021-09-06 01:20] LABS: Basophils Percent Auto 0.4 % (0.2-1.2); Eosinophils Absolute Auto 0.2 K/mm3 (0-0.3); Eosinophils Percent Auto 1.7 % (0-4.4); Hematocrit 32.7 % (37.0-47.0); Hemoglobin 11.5 g/dL (12.0-15.0); Immature Granulocyte Absolute 0.04 K/mm3 (0.00-0.031); Immature Granulocyte Percent A 0.4 % (0-0.5); Lymphocytes Absolute Auto 1.83 K/mm3 (0.9-3.2); Lymphocytes Percent Auto 18.5 % (18.3-44.2); Mean Corpuscular HGB Conc 35.2 g/dl (32-36); Mean Corpuscular Hemoglobin 30.9 pg (26-34); Mean Corpuscular Volume 87.9 fl (80-100); Mean Platelet Volume 10.7 fl (7.4-10.4); Monocytes Absolute Auto 0.7 K/mm3 (0.1-0.6); Monocytes Percent Auto 6.7 % (2.6-8.5); Neutrophils Absolute Auto 7.2 K/mm3 (1.3-6.7); Neutrophils Percent Auto 72.3 % (45.5-73.1); Platelet Count Result 252 k/mm3 (150-375); Red Blood Count 3.72 M/mm3 (4.2-5.4); Red Cell Distribution Width 13.2 % (11.5-14.5); White Blood Count 9.9 K/mm3 (4.5-10.0)
[2021-09-06 01:37] LABS: Alanine Aminotransferase 26 U/L (4-35); Albumin Level 3.4 g/dL (3.5-5.1); Alkaline Phosphatase 133 U/L (38-126); Anion Gap 6 mmol/L (8-16); Aspartate Amino Transferase 29 U/L (14-36); Bilirubin,Total 0.1 mg/dL (0.2-1.3); Blood Urea Nitrogen 10 mg/dL (7-17); Calcium 8.4 mg/dL (8.4-10.2); Carbon Dioxide 19 mmol/L (22-30); Chloride 108 mmol/L (98-107); Estimated Glomerular Filt Rate > 60; Glucose 114 mg/dL (65-110); Potassium 3.5 mmol/L (3.4-5.0); Sodium 133 mmol/L (137-145); Uric Acid 4.7 mg/dL (2.5-7.5)
[2021-09-06] MEDS: OXYTOCIN 30 UNITS/NS 500 ML 30 UNITS/500 ML BAG IV CONT (01:39)
--- NOTE | 2021-09-06 02:08 | LDADM ---
This patient, Holley Parekh, was admitted to Labor/Delivery/Recovery 103 on 09/06/21 at 00:02. Plans for labor, pain management and were discussed with patient. Patient/family oriented to hospital policies and general routines including ID bracelet, bed and alarms, visiting hours, pain management, procedures, bathroom and other care routines, personal items, smoking policy, room service/diet and guest tray routines, infant security routines, and visiting hours. Patient/Family are encouraged to report perceived risks to care and to ask questions if they do not understand what they are told or what they should do. See OBIX for further documentation.
[2021-09-06] MEDS: AMPICILLIN 1 GM/NS 50 ML 1 GM/50 ML BAG IVPB ×3 (04:50→13:18)
--- NOTE | 2021-09-06 05:28 | WPDANESEPP ---
Anes - Eval Pre Procedure Procedure: labor epidural Date/Time: 09/06/21 05:28 Surgeon: sharon Preop Diagnosis: pain during labor Pre Op Diagnosis: IOL Patient Data Age: 35 Gender: F Height: 1.83 m Weight: 84 kg Last Vital Signs Pulse 75 09/06/21 05:15 BP 123/76 09/06/21 05:15 Allergies Allergy/AdvReac Type Severity Reaction Status Date / Time No Known Drug Allergies Allergy Other Verified 09/06/21 01:31 NICKELSULFATE AdvReac Intermediate TOPICAL Uncoded 09/06/21 01:06 REACTION TO WORN METAL Home Medications Medication Instructions Recorded Confirmed Type PNV no.[id number] acid 1 tablet PO DAILY 07/23/21 09/06/21 History [Complete ] aspirin [Adult Low Dose Aspirin] 81 mg PO DAILY 07/23/21 09/06/21 History docusate sodium [Colace] 100 mg PO BID 09/06/21 09/06/21 History valacyclovir [Valtrex] 500 mg PO BID 09/06/21 09/06/21 History Laboratory Tests 09/06/21 09/06/21 09/06/21 00:50 00:50 00:50 WBC 9.9 K/mm3 K/mm3 (4.5-10.0) RBC 3.72 M/mm3 L M/mm3 (4.2-5.4) Hgb 11.5 g/dL L g/dL (12.0-15.0) Hct 32.7 % L % (37.0-47.0) MCV 87.9 fl fl (80-100) MCH 30.9 pg pg (26-34) MCHC 35.2 g/dl g/dl (32-36) RDW 13.2 % % (11.5-14.5) Plt Count 252 k/mm3 k/mm3 (150-375) MPV 10.7 fl H fl (7.4-10.4) Immature Gran % (Auto) 0.4 % % (0-0.5) Neut % (Auto) 72.3 % % (45.5-73.1) Lymph % (Auto) 18.5 % % (18.3-44.2) Drew % (Auto) 6.7 % % (2.6-8.5) Eos % (Auto) 1.7 % % (0-4.4) Baso % (Auto) 0.4 % % (0.2-1.2) Lymph # (Auto) 1.83 K/mm3 K/mm3 (0.9-3.2) Drew # (Auto) 0.7 K/mm3 H K/mm3 (0.1-0.6) Eos # (Auto) 0.2 K/mm3 K/mm3 (0-0.3) Baso # (Auto) 0.0 K/mm3 K/mm3 (0.0-0.1) Abs Immat Gran (auto) 0.04 K/mm3 H K/mm3 (0.00-0.031) Absolute Neuts (auto) 7.2 K/mm3 H K/mm3 (1.3-6.7) Absolute Nucleated RBC 0.0 K/mm3 K/mm3 (0.0-0.012) Nucleated RBC % 0.0 % % (0.0-0.2) Sodium 133 mmol/L L mmol/L (137-145) Potassium 3.5 mmol/L mmol/L (3.4-5.0) Chloride 108 mmol/L H mmol/L (98-107) Carbon Dioxide 19 mmol/L L mmol/L (22-30) Anion Gap 6 mmol/L L mmol/L (8-16) BUN 10 mg/dL mg/dL (7-17) Creatinine 0.50 mg/dL L mg/dL (0.7-1.0) Estim Creat Clear Calc Not Reportable Estimated GFR > 60 (59 - ) Glucose 114 mg/dL H mg/dL (65-110) Uric Acid 4.7 mg/dL mg/dL (2.5-7.5) Calcium 8.4 mg/dL mg/dL (8.4-10.2) Total Bilirubin 0.1 mg/dL L mg/dL (0.2-1.3) AST 29 U/L U/L (14-36) ALT 26 U/L U/L (4-35) Alkaline Phosphatase 133 U/L H U/L (38-126) Total Protein 6.0 g/dL L g/dL (6.3-8.2) Albumin 3.4 g/dL L g/dL (3.5-5.1) RPR Pending Blood Type Antibody Screen 09/06/21 00:50 WBC RBC Hgb Hct MCV MCH MCHC RDW Plt Count MPV Immature Gran % (Auto) Neut % (Auto) Lymph % (Auto) Drew % (Auto) Eos % (Auto) Baso % (Auto) Lymph # (Auto) Drew # (Auto) Eos # (Auto) Baso # (Auto) Abs Immat Gran (auto) Absolute Neuts (auto) Absolute Nucleated RBC Nucleated RBC % Sodium Potassium Chloride Carbon Dioxide Anion Gap BUN Creatinine Estim Creat Clear Calc Estimated GFR Glucose Uric Acid Calcium Total Bilirubin AST ALT Alkaline Phosphatase Total Protein Albumin RPR Blood Type A Positive Antibody Screen Negative Patient hx anesthesia problem
[2021-09-06 06:54] LABS: Rapid Plasma Reagin Non-Reactive (NonReactive)
[2021-09-06] MEDS: LACTATED RINGERS 1,000 ML 999 ML IV CONT ×2 (07:44→08:58)
--- NOTE | 2021-09-06 08:08 | WPDOBADMIT ---
Obstetrics - Admit Note Admission Note: 35 y/o @ 37w2d here for induction d/t GHTN. record reviewed. No pertinent additions to the history and/or any subsequent changes in the physical findings that are not consistent with the expected course of the were found. Additions to the history and/or subsequent changes in the physical findings follow. None.
--- NOTE | 2021-09-06 08:30 | PM.IMHP ---
H&P: HPI History of Present Illness Date/Time: 09/06/21 08:30 35 y/o here for induction of labor d/t GHTN. has also been complicated by raynauds. History of hsv. No s/s of current or impending outbreak. Chief Complaint: Induction of Labor Review of Systems Review of Systems: All systems reviewed & are unremarkable except as noted in HPI and below Constitutional: Constitutional: Reports as per HPI and Reports no additional constitutional complaints Eyes: Eyes: Reports as per HPI ENT: Reports system reviewed and no additional complaints, except as documented Cardiovascular: Cardiovascular: Reports as per HPI Respiratory: Respiratory: Reports as per HPI Gastrointestinal: Gastrointestinal: Reports as per HPI Genitourinary: Genitourinary: Reports no additional female genitourinary complaints Musculoskeletal: Musculoskeletal: Reports no additional musculoskeletal complaints Integumentary/Breasts: Skin/Breast: Reports system reviewed and no additional complaints, except as docu Neurologic: Reports system reviewed and no additional complaints, except as documented Psychiatric: Psychiatric: Reports no additional psychiatric complaints Endocrine: Endocrine: Reports no additional endocrine complaints Hematologic/Lymphatic: Hematologic/Lymphatic: Reports no additional hematologic/lymphatic complaints Allergic/Immunologic: Allergic/Immunologic: Reports no additional allergic/immunologic complaints PMFSH Past Medical History Medical History Acute sinusitis, unspecified Chronic anxiety Chronic neck pain Contraception management Encounter for wellness examination in adult Fever blister Hx of migraine headaches Migraine without aura and without status migrainosus, not intractable Palpitation Raynaud's disease without gangrene Surgical History Surgical History History of breast surgery (~2007) benign tumor removed Hx of LASIK (~2007) Family History Family History Mother Lupus Heart disease Father Heart disease Multiple myeloma Grandparent Glaucoma Grandparent Heart disease Grandparent Macular degeneration Grandparent Depression Mesothelioma Sibling Depression Social History Social History Smoking status: Never smoker Second hand tobacco smoke exposure: No Alcohol intake: current Drinks per week: 2 Substance use: current Other substance usage details: Marijuana edibles on occasion Spiritual care concerns: No Meds Home Medications and Allergies Home Medications Medication Instructions Recorded Confirmed Type PNV no.[id number] acid 1 tablet PO DAILY 07/23/21 09/06/21 History [Complete ] aspirin [Adult Low Dose Aspirin] 81 mg PO DAILY 07/23/21 09/06/21 History docusate sodium [Colace] 100 mg PO BID 09/06/21 09/06/21 History valacyclovir [Valtrex] 500 mg PO BID 09/06/21 09/06/21 History Allergies Allergy/AdvReac Type Severity Reaction Status Date / Time No Known Drug Allergies Allergy Other Verified 09/06/21 01:31 NICKELSULFATE AdvReac Intermediate TOPICAL Uncoded 09/06/21 01:06 REACTION TO WORN METAL Vital Signs Vital Signs - 24 hr 09/06/21 01:05 09/06/21 01:18 09/06/21 01:30 Temperature Pulse Rate 88 89 89 Blood Pressure 123/75 130/90 133/82 Pulse Oximetry 09/06/21 01:45 09/06/21 02:00 09/06/21 02:15 Temperature Pulse Rate 77 79 78 Blood Pressure 125/70 120/73 116/67 Pulse Oximetry 09/06/21 02:30 09/06/21 02:45 09/06/21 03:00 Temperature Pulse Rate 81 74 74 Blood Pressure 116/71 114/65 117/68 Pulse Oximetry 09/06/21 03:15 09/06/21 03:30 09/06/21 03:45 Temperature Pulse Rate 75 74 75 Blood Pressure 115/66 119/73 114/73 Pulse Oximetry
--- NOTE | 2021-09-06 14:56 | PM.OBPRVD ---
OB - Delivery Note Procedure Delivery date: 09/06/21 Events: Gestational Hypertension Induction method: Per Pitocin Protocol Delivery monitor: External FHT and External Uterine Route of delivery: Episiotomy description: None Laceration Description: None Quantitative Blood Loss (ml): 252 Anesthesia type: Epidural Baby Date of : 09/06/21 Time of : 14:36 Weeks of gestation at delivery: 37 gender: Male presentation: vertex position: Left Occiput Anterior Placenta delivery description: Spontaneous Cord Vessel Description: Loose, Delayed Cord Clamping, Around Body and Around Extremity Narrative: Cord gasses collected and handed off to staff.
[2021-09-06] MEDS: OXYTOCIN 30 UNITS/NS 500 ML 30 UNITS/500 ML BAG 125 UNITS IV CONT (15:07)
[2021-09-06] MEDS: IBUPROFEN 600 MG TABLET PO (19:17)
[2021-09-07 04:40] VITALS: BP 111/72; PULSE 68; RESP 16; TEMP 36.7
[2021-09-07 05:14] LABS: Hematocrit 31.1 % (37.0-47.0); Hemoglobin 10.6 g/dL (12.0-15.0)
[2021-09-07] MEDS: MULTIVIT/MIN/PREN/FOL AC/IRON TABLET 1 TAB PO (07:01)
[2021-09-07] MEDS: DOCUSATE SODIUM 100 MG CAPSULE PO ×2 (07:01→17:13)
[2021-09-07] MEDS: IBUPROFEN 600 MG TABLET PO ×2 (07:01→19:54)
--- NOTE | 2021-09-07 07:23 | PM.OBPNVD ---
OB - PN: Subj Subjective Date/time seen: 09/07/21 07:23 Narrative: Pt in shower. Per FOB she has mild pain and cramping and is doing well. Baby improving in L2. NO concerns at this time. Pumping. OB - PN: Obj Data Labs CBC & Chem 7: 09/07/21 04:42 09/06/21 00:50 Labs: Laboratory Results - last 24 hr 09/07/21 04:42 Hgb 10.6 L Hct 31.1 L OB - PN A/P Assessment and Plan (1) Gestational HTN: Code(s): O13.9 - Gestational [-induced] hypertension without significant proteinuria, unspecified trimester Status: Acute (2) , delivered: Code(s): O80 - Encounter for full-term uncomplicated delivery Status: Acute Plan day: 1 Plan: routine care Comments: BPs all wnl since delivery routine post care. Time Spent With Patient Time: Total time spent is greater than 50% in coordination of care (as documented) at patient's floor/unit and/or counseling patient: Time with patient: less than 15 minutes Exam Narrative: NAD abdomen soft, nontender, fundus firm below the umbilicus Extremities nontender, 1+ edema
[2021-09-07 08:15] VITALS: BP 135/87; PULSE 86; RESP 18; TEMP 36.4; O2SAT 98
--- NOTE | 2021-09-07 08:37 | PC.NURSE ---
0805 - Introductions were made, then consulted with patient to assess needs related to feeding her baby. Mother led the conversation with her experience pumping for her so far. Encouraged understanding of the benefits of skin to skin (unwrapping infant and placing vertically on her chest), responsive feeding and how to watch for early feeding signs, frequency of pumping and feeding on demand about every 8 in 24 hours for milk production, and signs of adequate intake/output and how to record on the feeding sheet. Reminding mother of comfort measures of healing with a warm and wet washcloth to rinse breast, then leave open to air-dry as needed. Reviewed good handwashing when touching the breast/nipples to prevent infection. Resources used to facilitate learning were used with the mom and baby guide. Mother voiced understanding of information and questions answered. Reported to the primary RN.
[2021-09-07 13:50] VITALS: BP 117/76; PULSE 90; RESP 18; TEMP 36.5; O2SAT 99
--- NOTE | 2021-09-07 13:56 | WPDANLDPN2 ---
Anes-Prog Note L&D Date/Time: 09/07/21 13:56 Comfortable throughout: delivery Neuraxial method: epidural Epidural/Spinal procedure site: clean & non-tender Neuro status: Neuro function grossly intact. Cardiovascular status: normal Respiratory status: normal Airway patency: baseline Mental status: baseline Post-Op hydration status: normal Vital Signs: Last Vital Signs Temp 36.4 C L 09/07/21 08:15 Pulse 86 09/07/21 08:15 Resp 18 09/07/21 08:15 BP 135/87 09/07/21 08:15 Pulse Ox 98 09/07/21 08:15 Pain score (VAS): 2 I/O: Intake & Output 09/06/21 09/07/21 09/07/21 23:59 07:59 15:59 Intake Total 500 Balance 500 Post-procedural complaints: none Patient feedback: Patient satisfied with anesthetic care.
[2021-09-07 18:50] VITALS: BP 129/84; PULSE 71; RESP 18; TEMP 36.4
[2021-09-08 07:25] VITALS: BP 105/72; PULSE 81; RESP 18; TEMP 36.4; O2SAT 99
--- NOTE | 2021-09-08 08:30 | P.PNOB_ITS ---
OB - PN: Subj Subjective Date/time seen: 09/08/21 08:30 Patient comments: no complaints, pain well controlled and tolerating diet OB - PN: Obj Data Labs CBC & Chem 7: 09/07/21 04:42 09/06/21 00:50 OB - PN A/P Plan day: 2 Plan: routine care and discharge home Time Spent With Patient Time: Total time spent is greater than 50% in coordination of care (as docume nted) at patient's floor/unit and/or counseling patient: Exam Const: General: comfortable and no acute distress Resp: Effort & Inspection: normal respiratory effort Auscultation: no rales, no rhonchi and no wheezes Cardio: Rate: regular rate Heart sounds: no click, no murmurs and no rubs GI: GI Palp: Yes Soft to palpation and No Tenderness to palpation present (GI) Auscultation: normal bowel sounds Extrem: General: normal to inspection, no pedal edema and no calf tenderness
--- NOTE | 2021-09-08 08:30 | PM.OBDSVD ---
DS: Admitting Diagnosis Discharge Date September 08, 2021 Admitting Diagnosis term gestation DS: Discharge Diagnosis Discharge Diagnosis (1) , delivered: Code(s): O80 - Encounter for full-term uncomplicated delivery Status: Acute OB - DS: Summary OB Procedures : None OB Procedures Intrapartum: Spontaneous Vag Delivery OB Procedures: : None Time Spent with Patient Time attestation: Total time spent providing and/or coordinating discharge services: DS: Data Data Completed and Pending Pending studies at discharge: Pending at discharge 09/06/21 14:45 Surgical [PTH] Routine Discharge Plan Discharge Discharging Clinician: Magui Auguste Patient Disposition: Home, Self-Care Activity: pelvic rest Diet: regular Patient Instructions: Antibiotic Form Stand Alone Forms: General Discharge Information Follow-up/Referrals: Magui Auguste MD [Physician] - Discharge Medications: Continued Adult Low Dose Aspirin 81 mg Tablet 81 mg PO DAILY RF: 0 Complete 30-975 mg-mcg Tablet 1 tablet PO DAILY RF: 0 docusate sodium [Colace] 100 mg Capsule 100 mg PO BID RF: 0 valacyclovir [Valtrex] 500 mg tablet 500 mg PO BID RF: 0 Date of admission: 09/06/21 00:02 Primary Care Provider: Merlin Minor Admitting Provider: Magui Auguste Attending physician on admission: Magui Auguste Condition: Stable
[2021-09-08] MEDS: IBUPROFEN 600 MG TABLET PO (12:06)
[2021-09-09 08:44] VITALS: BP 138/87; PULSE 80; RESP 20; TEMP 36.6; O2SAT 98
== END 2021-09-08 13:44 | disposition home or self-care (01) | DRG 807 ==
LOC: ANHLDR 00:05 → ANHOB2 18:02
PROVIDERS: Advanced Practice Midwife; Admitting Provider Obstetrics & Gynecology; PCP Family Medicine; Visit Provider Obstetrics & Gynecology
DX: O13.4 Gestational [pregnancy-induced] hypertension without significant proteinuria, complicating childbirth (principal); Z37.0 Single live birth; Z3A.37 37 weeks gestation of pregnancy; O99.824 Streptococcus B carrier state complicating childbirth; O69.82X0 Labor and delivery complicated by other cord entanglement, without compression, not applicable or unspecified
CPT/HCPCS: 36415; 80053; 84550; 85014; 85018; 85025; 86592; 86850; 86900; 86901; 88307; A9270; J0290; J2590; J2795; J7120

== ENCOUNTER 2021-10-19 11:14 | Emergency (ER) | payer OTHER, SELFPAY ==
[2021-10-19 11:39] VITALS: BP 138/84; PULSE 74; RESP 19; TEMP 36.9; O2SAT 99
--- NOTE | 2021-10-19 11:47 | PC.NURSE ---
patient states that sunday she started having redness and pain to right breast. reports sunday started vomiting and had chills. woke up sunday and had rash on abdomen that spread to bilateral thighs. 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
--- NOTE | 2021-10-19 12:08 | PC.NURSE ---
provider did physical exam with medical writer in room
--- NOTE | 2021-10-19 12:19 | ED.GENADULT ---
HPI - General Adult General Chief complaint: Skin/Abscess/Foreign Body Stated complaint: ?mastitis Time Seen by Provider: 10/19/21 11:54 Source: patient History of Present Illness HPI narrative: Patient presents with concern for mastitis. She has a 6-week-old and is breast-feeding she is noted a rash and tenderness on her right inferior breast. It is tender and warm she came in for evaluation. She also reports she has had some nausea vomiting and fever similar to other family members. As well as a rash on her abdomen and legs is unsure if this is a viral process or related to her head or breast. Related Data Home Medications Medication Instructions Recorded Confirmed aspirin 81 mg tablet 81 mg PO DAILY 07/23/21 09/06/21 vit#24-iron amino acid 1 tablet PO DAILY 07/23/21 09/06/21 chelat-folic acid 30 mg-975 mcg tablet docusate sodium 100 mg capsule 100 mg PO BID 09/06/21 09/06/21 (Colace) valacyclovir 500 mg tablet 500 mg PO BID 09/06/21 09/06/21 (Valtrex) Allergies Allergy/AdvReac Type Severity Reaction Status Date / Time No Known Drug Allergies Allergy Other Verified 09/06/21 01:31 NICKELSULFATE AdvReac Intermediate TOPICAL Uncoded 10/19/21 11:48 REACTION TO WORN METAL Review of Systems Review of Systems: CONSTITUTIONAL: Denies fever, chills, or sweats. EYES: Denies visual changes, redness, or discharge. ENT: Denies rhinorrhea, congestion, sore throat, or otalgia. CARDIOVASCULAR: Denies chest pain, palpitations, or edema. RESPIRATORY: Denies cough or dyspnea. GASTROINTESTINAL: Denies abdominal pain, nausea, vomiting, or diarrhea. GENITOURINARY: Denies dysuria or hematuria. SKIN: Denies itching. MUSCULOSKELETAL: Denies back pain, joint pain, or myalgia. NEUROLOGIC: Denies headache, numbness, dizziness, or weakness. PSYCHIATRIC: Denies anxiety or depression. All systems reviewed & are unremarkable except as noted in HPI and below PMFSH Past Medical History Medical History Acute sinusitis, unspecified Chronic anxiety Chronic neck pain Contraception management Encounter for wellness examination in adult Fever blister Hx of migraine headaches Migraine without aura and without status migrainosus, not intractable Palpitation Raynaud's disease without gangrene Surgical History Surgical History History of breast surgery (~2007) benign tumor removed Hx of LASIK (~2007) Family History Family History Mother Lupus Heart disease Father Heart disease Multiple myeloma Grandparent Glaucoma Grandparent Heart disease Grandparent Macular degeneration Grandparent Depression Mesothelioma Sibling Depression Social History Social History Smoking status: Never smoker Second hand tobacco smoke exposure: No Alcohol intake: current Drinks per week: 2 Substance use: current Other substance usage details: Marijuana edibles on occasion Spiritual care concerns: No Exam Narrative: GENERAL: Well-appearing, well-nourished, and in no acute distress. HEAD: Normocephalic, atraumatic. EYES: PERRLA and EOMI. ENT: Nares clear, no rhinorrhea or epistaxis. Mucous membranes moist. 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 No focal fluctuance no open or draining wounds NECK: Supple. No masses. No JVD ABDOMEN: Soft, nontender, nondistended, normal active bowel sounds. EXTREMITIES: Normal range of motion. No edema. SKIN: Warm, dry. Blanching diffuse spots of erythema on the torso no open or draining wounds no ulcerations or pustules no urticaria NEURO: No focal deficits. Alert and oriented x3. PSYCH: Normal mood and affect. Course Noy
[2021-10-19 12:34] VITALS: RESP 16; O2SAT 100
== END 2021-10-19 12:35 | disposition home or self-care (01) ==
PROVIDERS: Emergency Provider Emergency Medicine; PCP Family Medicine
DX: O91.22 Nonpurulent mastitis associated with the puerperium (principal); O99.43 Diseases of the circulatory system complicating the puerperium; I73.00 Raynaud's syndrome without gangrene; Z79.82 Long term (current) use of aspirin
CPT/HCPCS: 99283

== ENCOUNTER 2024-02-07 09:19 | Outpatient (CLI) | payer BC, SELFPAY ==
--- NOTE | ~2024-02-07 | MMUS_ITS ---
EXAMINATION: MM diagnostic amee BI w rob, US breast RT limited HISTORY: Palpable right breast lump TECHNIQUE: 3-D tomosynthesis images of the bilateral breasts were performed and synthetic 2-D images were generated. CAD analysis was submitted and interpreted. High resolution limited right breast ultr asound was performed. COMPARISON: 05/20/2008 BREAST PARENCHYMAL COMPOSITION:Dense: The breasts are heterogeneously dense, which may obscure small masses. FINDINGS: MAMMOGRAPHIC FINDINGS: Parenchymal pattern of the breasts is unremarkable. No mass lesion or distortion seen. No suspicious mass or calcification. ULTRASOUND: No solid or cystic lesion seen in the region scanned. No sonographic abnormality seen in the region o f the 10:00 position right breast, 6 aneurysm the nipple. IMPRESSION: No mammographic evidence for malignancy. No mammographic or sonographic correlate seen for the area of clinical concern at the 10:00 position right breast. BI-RADS Category 1: Negative Reviewed, dictated and finalized at location . IMPRESSION: No mammographic evidence for malignancy. No mammographic or sonographic correl ate seen for the area of clinical concern at the 10:00 position right breast. BI-RADS Category 1: Negative
== END 2024-02-07 09:20 | disposition home or self-care (01) ==
LOC: MICIMG 09:22
PROVIDERS: PCP Family Medicine; Visit Provider Obstetrics & Gynecology
DX: N63.0 Unspecified lump in unspecified breast (principal)
CPT/HCPCS: 76642; 77062; 77066; G0279

== ENCOUNTER 2025-02-10 14:58 | Outpatient (CLI) | payer BC, SELFPAY ==
--- OUTSIDE RECORDS SUMMARY | 2004-01-04 11:15 | XMS_ITS | Continuity of Care Document ---
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, [address], [place], [place], [id number], tel:[phone] [facility] No Information Ashwini Shelley. [address] [place], [address], . tel:[phone] Referring Provider: Moriah Germain MD, [address], [place], [address]. tel:[phone] Family History Family Member Type Diagnosis Age At Onset No Information Payers Payer name Insurance type Covered republican ID Authoriza tion(s) No Information Social History Type Description Quantity Date Captured Comments Sex Female Smoking Status No Information Chief Complaint And Reason For Visit No Information Reason For Referral Reason For Referral No Information History Of Present Illness Encounter Date Complaint History Of Prese nt Illness No Information Functional Status Date Functional Assessmen t No Information Instructions Date Instruction Additional Infor mation No Information Assessments Type Assessment Date No Information Patient Care Teams Name Effective Dates (start - stop) Status Members No Information
--- NOTE | ~2025-02-10 | MM_ITS ---
EXAMINATION: MM screening amee BI w rob HISTORY: Screening TECHNIQUE: Craniocaudal and mediolateral oblique 3-D tomosynthesis images were obtained and synthetic 2-D images were generated. CAD analysis was submitted and interpreted. COMPARISON: 02/07/2024 BREAST PARENCHYMAL COMPOSITION: The breasts are heterogeneously dense, which may obscure small masses. FINDINGS: There is no evidence of suspicious mass, calcification, or architectural distortion to suggest malignancy. There has been no suspicious interval change. IMPRESSION: 1. No mammographic evidence of malignancy. Recommend routine screening mammography in one year. BI-RADS Category 2: Benign finding(s) Reviewed, dictated and finalized at location Q. IMPRESSION: 1. No mammographic evidence of malignancy. Recommend routine screening mammogra phy in one year. BI-RADS Category 2: Benign finding(s)
== END 2025-02-10 14:59 | disposition home or self-care (01) ==
LOC: ANHFOHIMG 14:59
PROVIDERS: PCP Family Medicine; Visit Provider Obstetrics & Gynecology
DX: Z12.31 Encounter for screening mammogram for malignant neoplasm of breast (principal)
CPT/HCPCS: 77063; 77067